=== PATIENT | female | born 1995 | race Caucasian/White ===

== ENCOUNTER 2017-01-19 17:24 | Emergency (ER) | payer BC ==
[~2017-01-19] VITALS: Ht 160 cm; Wt 49.0 kg
[2017-01-19 17:27] VITALS: TEMP 36.5; Ht 160 cm; Wt 49.0 kg
[2017-01-19] MEDS ORDERED: SODIUM CHLORIDE 0.9% 1000ML 2,000 ML IV STA (17:43)
[2017-01-19] MEDS ORDERED: ONDANSETRON INJ 2 MG/ML 2 ML VIAL IV STA (17:43)
[2017-01-19] MEDS ORDERED: LEVOIUD INT UTER (17:46)
[2017-01-19] MEDS ORDERED: ALBU18002 INH (17:46)
[2017-01-19] MEDS ORDERED: GI COCKTAIL PO STA (17:46)
[2017-01-19] MEDS ORDERED: LIDOCAINE HCL 2% VISC SOLN 20 ML UDC ONE (17:50)
[2017-01-19] MEDS ORDERED: ALUMINUM/MAGNESIUM SUSP 30 ML UDC ONE (17:50)
[2017-01-19 18:29] LABS: BASO % 0.3 %; BASO ABS # 0.03 K/uL (0-0.2); HEMATOCRIT 41.4 % (37-47); IG% 0.3 %; LYMPH % 5.8 %; LYMPH ABS # 0.66 K/uL (1.2-3.4); MEAN CORPUSCULAR HEMOGLOBIN 19.9 pg (25-34); MEAN CORPUSCULAR HGB CONC 32.1 g/dl (32-36); MEAN PLATELET VOLUME 9.7 fL (7.4-10.4); MONO % 2.7 %; NEUT % 90.9 %; PLATELET COUNT 274 K/uL (130-400); RED BLOOD COUNT 6.68 M/uL (4.2-5.4); WHITE BLOOD COUNT 11.44 K/uL (4.8-10.8)
--- NOTE | 2017-01-19 19:11 | DIAGNOSTIC IMAGING REPORT ---
PA CHEST RADIOGRAPH AND UPRIGHT AND SUPINE AP RADIOGRAPHS OF THE ABDOMEN CLINICAL HISTORY: Upper abdominal pain and vomiting. COMPARISON STUDY: No previous studies for comparison. FINDINGS: Lung volumes are normal. There is possible left infrahilar airspace opacity. There is no pneumothorax or pleural effusion. Cardiac size is normal. Mediastinal contours are normal. No evidence of pulmonary edema. There is no free air. The bowel gas pattern is normal. An intrauterine device projects over the pelvis. A punctate calcific density projects over the left mid abdomen. IMPRESSION: 1. No free air or evidence of bowel obstruction. 2. 2 mm calcific density projecting over the left mid abdomen. Although considered unlikely, this could reflect a proximal left ureteral calculus and could be correlated with left flank pain. This is likely artifactual. 3. Possible left infrahilar airspace opacity which could reflect a small area of pneumonia. Short-term radiographic follow up is recommended to ensure resolution. Electronically signed by: Nicolas Hedrick M.D. 01/19/2017 7:10 PM Dictated Date/Time: 01/19/2017 7:04 PM
[2017-01-19 19:15] LABS: ALKALINE PHOSPHATASE 66 U/L (45-117); ALT/SGPT 27 U/L (12-78); BLOOD UREA NITROGEN 18 mg/dl (7-18); BUN/CREATININE RATIO 23.1 (10-20); CALCIUM 9.2 mg/dl (8.5-10.1); CARBON DIOXIDE 19 mmol/L (21-32); CHLORIDE 110 mmol/L (98-107); CREATININE 0.77 mg/dl (0.60-1.20); GLUCOSE 55 mg/dl (70-99); SODIUM 143 mmol/L (136-145)
[2017-01-19 19:17] LABS: COMPLETE YES; MICROCYTOSIS PRESENT; POLYCHROMASIA 1+; TEAR DROP CELLS 1+
--- NOTE | 2017-01-19 19:31 | DIAGNOSTIC IMAGING REPORT ---
ABDOMINAL ULTRASOUND, RIGHT UPPER QUADRANT HISTORY: Right upper quadrant abdominal pain. COMPARISON: Abdominal series and chest radiograph performed earlier today. FINDINGS: Liver morphology is normal. No hepatic lesions are present. There is no biliary ductal dilatation. The common bile duct measures 3 mm in caliber. Gallbladder is normal. There are no gallstones. The pancreas is within normal limits by sonography. There is no right hydronephrosis. IMPRESSION: No significant abnormality identified within the right upper quadrant. Electronically signed by: Nicolas eHdrick M.D. 01/19/2017 7:29 PM Dictated Date/Time: 01/19/2017 7:28 PM
[2017-01-19] MEDS ORDERED: OPTIRAY 320 IV PRN (20:15)
[2017-01-19 20:30] LABS: URINE APPEARANCE CLEAR (CLEAR); URINE BILIRUBIN NEG (NEG); URINE COLOR YELLOW; URINE EPITHELIAL CELL AUTO >30 /lpf (0-5); URINE NITRITE NEG (NEG); URINE SPECIFIC GRAVITY 1.024 (1.000-1.030); UROBILINOGEN NEG (NEG); ZZUR CULT IF INDIC CLEAN CATCH NO
[2017-01-19 20:37] LABS: MANUAL MICROSCOPIC REQUIRED? NO; REVIEW REQ? NO
--- NOTE | 2017-01-19 20:51 | DIAGNOSTIC IMAGING REPORT ---
CT OF THE ABDOMEN AND PELVIS WITH CONTRAST CLINICAL HISTORY: Abdominal pain. COMPARISON STUDY: Abdominal series and biliary ultrasound performed earlier today. TECHNIQUE: Following IV administration of 92 mL of Optiray-320, axial images of the abdomen and pelvis were obtained from the lung bases to the proximal femurs. Images were reviewed in the axial, sagittal, and coronal planes. IV contrast was administered without complication. A dose lowering technique was utilized adhering to the principles of ALARA. CT DOSE: 268.14 mGy.cm FINDINGS: Lung bases are clear. The liver, spleen, adrenal glands, kidneys and pancreas are normal. There is no biliary or pancreatic ductal dilatation. No hydronephrosis or hydroureter is present. Both nephrograms are symmetric. Caliber and wall thickness of small and large bowel are normal. The appendix is normal. There is trace free fluid within the pelvis. A 1.4 cm peripherally enhancing right adnexal lesion is present. An intrauterine device appears appropriately positioned. Uterus is retroverted. No suspicious osseous lesion is present. There is no lymphadenopathy. No pneumatosis, free air or portal venous gas is present. Major vasculature of the abdomen and pelvis is patent. IMPRESSION: 1. Normal appendix. No bowel obstruction. 2. Trace free fluid within the pelvis. 3. 1.4 cm peripherally enhancing right adnexal structure which likely reflects a corpus luteal cyst. 4. Intrauterine device in place. Electronically signed by: Nicolas Hedrick M.D. 01/19/2017 8:50 PM Dictated Date/Time: 01/19/2017 8:38 PM
[2017-01-19 21:09] LABS: POTASSIUM 4.4 mmol/L (3.5-5.1)
[2017-01-19 21:28] VITALS: BP 120/72; PULSE 99; O2SAT 99
--- NOTE | 2017-01-19 23:27 | EMERGENCY ROOM VISIT NOTE ---
History Report prepared by Itzel: Oni Joseph Under the Supervision of: Ruth RoaO. First contact with patient: 17:33 Chief Complaint: ILLNESS Stated Complaint: ILLNESS History of Present Illness The patient is a 21 year old female who presents to the Emergency Room with complaints of intermittent vomiting starting 1400 today. She additionally is complaining of upper abdominal pain, and she states that she is dry heaving. The patient states that she was drinking alcohol last night, and she had approximately 8 drinks of liquor. She woke up with abdominal pain, and then the vomiting started, and it is yellow. The patient states that she drinks often. Her last normal menstrual period was two years ago, and she denies any discharge , and she is sexually active. She states that she has not had any stomach surgeries, and her last bowel movement was this morning. She has a history of asthma and thalassemia. Pt denies headache, change in vision, fevers, chest pain , shortness of breath, hematemesis, diarrhea, pain with urination, and melena. Source of History: patient Onset: 1400 Position: other (global) Quality: other (vomiting) Timing: intermittent Associated Symptoms: + abdominal pain Review of Systems See HPI for pertinent positives & negatives. A total of 10 systems reviewed and were otherwise negative. Past Medical & Surgical Medical Problems: (1) Asthma (2) Thalassemia Social History Smoking Status: Never Smoker Marital Status: single Housing Status: lives with roommate Occupation Status: [employer] student Current/Historical Medications Scheduled Levonorgestrel (Iud) (Mirena), 1 INT UTER UD Scheduled PRN Albuterol Sulfate (Proair Respiclick), 2 PUFFS INH UD PRN for asthma symptoms Allergies Coded Allergies: NSAIDs (Verified Allergy, Severe, itchy throat, 01/19/17) HAS EPI PEN Nut Tree (Verified Allergy, Unknown, UNK, 01/19/17) Sulfa Antibiotics (Verified Allergy, Unknown, UNK, 01/19/17) Physical Exam Vital Signs Date Time Temp Pulse Resp B/P (MAP) Pulse Ox O2 Delivery O2 Flow Rate FiO2 01/19/17 21:28 99 18 120/72 99 01/19/17 18:25 89 15 101/69 100 Room Air 01/19/17 17:27 36.5 95 18 113/70 96 Room Air Physical Exam GENERAL: Laying in bed, disheveled, no distress, non-toxic EYE EXAM: normal conjunctiva OROPHARYNX: no exudate, no erythema, lips, buccal mucosa, and tongue normal and mucous membranes are moist NECK: supple, no nuchal rigidity, no adenopathy, non-tender LUNGS: Clear to auscultation. Normal chest wall mechanics HEART: no murmurs, S1 normal and S2 normal ABDOMEN: Minimal tenderness in the epigastric region as well as the right upper quadrant. Abdomen soft, normo-active bowel sounds, no masses, no rebound or guarding. BACK: Back is symmetrical on inspection and there is no deformity, no midline tenderness, no CVA tenderness. SKIN: no rashes and no bruising UPPER EXTREMITIES: upper extremities are grossly normal. LOWER EXTREMITIES: No pitting edema. NEURO EXAM: Normal sensorium, cranial nerves II-XII grossly intact, normal speech, no gross weakness of arms, no gross weakness of legs. Gross sensation intact. Medical Decision & Procedures ER Provider Diagnostic Interpretation: Radiology results as stated below per my review and the radiologist's interpretation: ABDOMINAL ULTRASOUND, RIGHT UPPER QUADRANT HISTORY: Right upper quadrant abdominal pain. COMPARISON: Abdominal series and chest radiograph performed earlier today. FINDINGS: Liver morphology is normal. No hepatic lesions are present. There is no biliary ductal dilatation. The common bile duct measures 3 mm in caliber. Gallbladder is normal. There are no gallstones. The pancreas is within normal limits by sonography. There is no right hydronephrosis. IMPRESSION: No significant abnormality identified within the right upper quadrant. Electronically signed by: Nicolas Hedrick M.D. 01/19/2017 7:29 PM Dictated Date/Time: 01/19/2017 7:28 PM PA CHEST RADIOGRAPH AND UPRIGHT AND SUPINE AP RADIOGRAPHS OF THE ABDOMEN CLINICAL HISTORY: Upper abdominal pain and vomiting. COMPARISON STUDY: No previous studies for comparison. FINDINGS: Lung volumes are normal. There is possible left infrahilar airspace opacity. There is no pneumothorax or pleural effusion. Cardiac size is normal. Mediastinal contours are normal. No evidence of pulmonary edema. There is no free air. The bowel gas pattern is normal. An intrauterine device projects over the pelvis. A punctate calcific density projects over the left mid abdomen. IMPRESSION: 1. No free air or evidence of bowel obstruction. 2. 2 mm calcific density projecting over the left mid abdomen. Although considered unlikely, this could reflect a proximal left ureteral calculus and could be correlated with left flank pain. This is likely artifactual. 3. Possible left infrahilar airspace opacity which could reflect a small area of pneumonia. Short-term radiographic follow up is recommended to ensure resolution. Electronically signed by: Nicolas Hedrick M.D. 01/19/2017 7:10 PM Dictated Date/Time: 01/19/2017 7:[address] OF THE ABDOMEN AND PELVIS WITH CONTRAST CLINICAL HISTORY: Abdominal pain. COMPARISON STUDY: Abdominal series and biliary ultrasound performed earlier today. TECHNIQUE: Following IV administration of 92 mL of Optiray-320, axial images of the abdomen and pelvis were obtained from the lung bases to the proximal femurs. Images were reviewed in the axial, sagittal, and coronal planes. IV contrast was administered without complication. A dose lowering technique was utilized adhering to the principles of ALARA. CT DOSE: 268.14 mGy.cm FINDINGS: Lung bases are clear. The liver, spleen, adrenal glands, kidneys and pancreas are normal. There is no biliary or pancreatic ductal dilatation. No hydronephrosis or hydroureter is present. Both nephrograms are symmetric. Caliber and wall thickness of small and large bowel are normal. The appendix is normal. There is trace free fluid within the pelvis. A 1.4 cm peripherally enhancing right adnexal lesion is present. An intrauterine device appears appropriately positioned. Uterus is retroverted. No suspicious osseous lesion is present. There is no lymphadenopathy. No pneumatosis, free air or portal venous gas is present. Major vasculature of the abdomen and pelvis is patent. IMPRESSION: 1. Normal appendix. No bowel obstruction. 2. Trace free fluid within the pelvis. 3. 1.4 cm peripherally enhancing right adnexal structure which likely reflects a corpus luteal cyst. 4. Intrauterine device in place. Electronically signed by: Nicolas Hedrick M.D. 01/19/2017 8:50 PM Dictated Date/Time: 01/19/2017 8:38 PM Laboratory Results 01/19/17 18:10 Red Blood Count 6.68, Mean Corpuscular Volume 62.0, Mean Corpuscular Hemoglobin 19.9, Mean Corpuscular Hemoglobin Concent 32.1, Mean Platelet Volume 9.7, Neutrophils (%) (Auto) 90.9, Lymphocytes (%) (Auto) 5.8, Monocytes (%) (Auto) 2.7, Eosinophils (%) (Auto) 0.0, Basophils (%) (Auto) 0.3, Neutrophils # (Auto) 10.40, Lymphocytes # (Auto) 0.66, Monocytes # (Auto) 0.31, Eosinophils # (Auto) 0.00, Basophils # (Auto) 0.03 01/19/17 18:10 01/19/17 20:46 Test 01/19/17 18:10 01/19/17 20:10 01/19/17 20:46 White Blood Count 11.44 K/uL (4.8-10.8) Red Blood Count 6.68 M/uL (4.2-5.4) Hemoglobin 13.3 g/dL (12.0-16.0) Hematocrit 41.4 % (37-47) Mean Corpuscular Volume 62.0 fL (80-100) Mean Corpuscular Hemoglobin 19.9 pg (25-34) Mean Corpuscular Hemoglobin Concent 32.1 g/dl (32-36) Platelet Count 274 K/uL (130-400) Mean Platelet Volume 9.7 fL (7.4-10.4) Neutrophils (%) (Auto) 90.9 % Lymphocytes (%) (Auto) 5.8 % Monocytes (%) (Auto) 2.7 % Eosinophils (%) (Auto) 0.0 % Basophils (%) (Auto) 0.3 % Neutrophils # (Auto) 10.40 K/uL (1.4-6.5) Lymphocytes # (Auto) 0.66 K/uL (1.2-3.4) Monocytes # (Auto) 0.31 K/uL (0.11-0.59) Eosinophils # (Auto) 0.00 K/uL (0-0.5) Basophils # (Auto) 0.03 K/uL (0-0.2) RDW Standard Deviation 34.0 fL (36.4-46.3) RDW Coefficient of Variation 15.6 % (11.5-14.5) Immature Granulocyte % (Auto) 0.3 % Immature Granulocyte # (Auto) 0.04 K/uL (0.00-0.02) Polychromasia 1+ Microcytosis PRESENT Tear Drop Cells 1+ Anion Gap 14.0 mmol/L (3-11) Est Creatinine Clear Calc Drug Dose 89.4 ml/min Estimated GFR () 127.9 Estimated GFR (Non- 110.4 BUN/Creatinine Ratio 23.1 (10-20) Calcium Level 9.2 mg/dl (8.5-10.1) Total Bilirubin 1.1 mg/dl (0.2-1) Alanine Aminotransferase (ALT/SGPT) 27 U/L (12-78) Alkaline Phosphatase 66 U/L (45-117) Total Protein 8.1 gm/dl (6.4-8.2) Albumin 4.7 gm/dl (3.4-5.0) Lipase 81 U/L (73-393) Urine Color YELLOW Urine Appearance CLEAR (CLEAR) Urine pH 5.0 (4.5-7.5) Urine Specific [place] 1.024 (1.000-1.030) Urine Protein NEG (NEG) Urine Glucose (UA) NEG (NEG) Urine Ketones 3+ (NEG) Urine Occult Blood NEG (NEG) Urine Nitrite NEG (NEG) Urine Bilirubin NEG (NEG) Urine Urobilinogen NEG (NEG) Urine Leukocyte Esterase TRACE (NEG) Urine WBC (Auto) 1-5 /hpf (0-5) Urine RBC (Auto) 0-4 /hpf (0-4) Urine Hyaline Casts (Auto) 1-5 /lpf (0-5) Urine Epithelial Cells (Auto) >30 /lpf (0-5) Urine Bacteria (Auto) NEG (NEG) Urine Test NEG (NEG) Direct Bilirubin 0.3 mg/dl (0-0.2) Aspartate Amino Transf (AST/SGOT) 50 U/L (15-37) Laboratory results per my review. Medications Administered Medications (Trade) Dose Ordered Sig/Polina Route Start Time Stop Time Status Last Admin Dose Admin Sodium Chloride 2,000 ml @ 999 mls/hr Q2H1M STAT IV 01/19/17 17:43 01/19/17 19:43 DC 01/19/17 18:19 999 MLS/HR Ondansetron HCl (Zofran Inj) 4 mg NOW STAT IV 01/19/17 17:43 01/19/17 17:46 DC 01/19/17 18:19 4 MG Al Hydroxide/Mg Hydroxide (Maalox Susp) 30 ml STK-MED ONCE .ROUTE 01/19/17 17:50 01/19/17 17:51 DC 01/19/17 18:19 30 ML Lidocaine HCl (Viscous Lidocaine 2% Soln) 20 ml STK-MED ONCE .ROUTE 01/19/17 17:50 01/19/17 17:51 DC 01/19/17 18:19 20 ML ED Course ED COURSE: Vital signs were reviewed and showed tachycardia The patients medical record was reviewed The above diagnostic studies were performed and reviewed. ED treatments and interventions as stated above. 1733: The patient was evaluated in room B8. A complete history and physical examination was performed. 174: Zofran Inj 4mg IV, Sodium Chloride 2000 ml @ 999 mls/hr IV 1749: Viscous Lidocaine 2% Soln 20ml PO, Maalox Susp 30ml PO 1911: I tried to reassess the patient, but she was still in x-ray 2114: Upon reevaluation, the patient is update, and feeling better.I discussed my findings with the patient and she understands and agrees with the treatment plan. Based on the patients age, coexisting illnesses, exam and lab findings the decision to treat as an outpatient was made. The patient remained stable while under my care. The patient appeared well at the time of discharge. Medical Decision Differential diagnoses includes but is not limited to gastritis, peptic ulcer disease, GERD, gallbladder disease, pancreatitis, small bowel obstruction, acute coronary syndrome, pericarditis, ischemic bowel, irritable bowel disease, irritable bowel syndrome, appendicitis, diverticulitis, malignancy, hernia, urinary tract infection, torsion, /ectopic , perforation, trauma, infectious. Patient is a 21-year-old female who presents the ER for epigastric abdominal pain which started when she woke up this morning after drinking alcohol last night. She does drink frequently and normally does not get sick. She notes the pain is located in the upper abdomen. Labs show a mild leukocytosis. BMP shows a CO2 of 19. Bilirubin was slightly elevated at 1.1. AST was also slightly elevated likely secondary to drinking. Lipase is normal. Urine and UA was negative. Child gallbladder was unremarkable. Abdominal x -rays show possible renal stone and questionable pneumonia. CT was performed of the dye which was unremarkable. She has no respiratory symptoms suggesting pneumonia. I favor this is likely a gastroenteritis secondary to drinking. Pain did improve with she had cocktail. She was able to tolerate clears was discharged follow-up with S. Discussed with Pt concerning signs and symptoms to watch out for. Pt was instructed to follow up with their PCP and discussed with the patient their option to return to the ED at anytime for persistent or worsening symptoms. The appropriate anticipatory guidance and out-patient management, including indications for return to the emergency department, were explained at length to the patient and understood. Medication Reconcilliation Current Medication List: was personally reviewed by me Blood Pressure Screening Patient's blood pressure: Normal blood pressure Impression Primary Impression: Enteritis Additional Impression: Vomiting Scribe Attestation The scribe's documentation has been prepared under my direction and personally reviewed by me in its entirety. I confirm that the note above accurately reflects all work, treatment, procedures, and medical decision making performed by me. Departure Information Dispostion Home / Self-Care Referrals No Doctor, Assigned (PCP) Forms HOME CARE DOCUMENTATION FORM, IMPORTANT VISIT INFORMATION, WORK / SCHOOL INSTRUCTIONS Patient Instructions ED Gastroenteritis Non Infec, My [facility] Additional Instructions Please follow up with your primary care doctor or if you are a student, [facility] with in the next 24 hours. Any worsening of your symptoms, please return to the ED immediately. This includes any fevers greater than 100.4, worsening pain, chest pain, shortness breath, persistent nausea, vomiting, unable to eat or drink, or any other concerning signs or symptoms from your standpoint. Problem Qualifiers Additional Impression: Vomiting Vomiting type: unspecified Vomiting Intractability: non-intractable Nausea presence: with nausea Qualified Codes: R11.2 - Nausea with vomiting, unspecified
== END 2017-01-19 21:29 | disposition home or self-care (01) ==
LOC: C.EDB 17:25
DX: K52.9 Noninfective gastroenteritis and colitis, unspecified (principal); R11.10 Vomiting, unspecified; J45.909 Unspecified asthma, uncomplicated; Z88.2 Allergy status to sulfonamides; Z88.8 Allergy status to other drugs, medicaments and biological substances; Z91.018 Allergy to other foods